=== PATIENT | female | born 2000 | race Two or more races ===

== ENCOUNTER 2020-09-17 17:37 | Emergency (ER) | payer OTHER, SELFPAY ==
[2020-09-17 17:46] VITALS: BP 134/92; PULSE 99; RESP 18; TEMP 37; O2SAT 99; BMI 31.1
[2020-09-17 19:37] VITALS: BP 166/99; PULSE 102; RESP 15; O2SAT 100
[2020-09-17 19:42] VITALS: BP 150/105; PULSE 96; RESP 18; TEMP 36.8; O2SAT 98
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
== END 2020-09-17 20:51 | disposition home or self-care (01) ==
PROVIDERS: Emergency Provider Internal Medicine; PCP Nurse Practitioner Pediatrics
DX: S29.9XXA Unspecified injury of thorax, initial encounter (principal); M54.5 Low back pain; M54.6 Pain in thoracic spine; V43.52XA Car driver injured in collision with other type car in traffic accident, initial encounter; Y93.9 Activity, unspecified; Y92.410 Unspecified street and highway as the place of occurrence of the external cause; Y99.9 Unspecified external cause status
CPT/HCPCS: 99284

== ENCOUNTER 2021-01-01 09:34 | Outpatient (REF) | payer OTHER, SELFPAY ==
[2021-01-01 10:21] LABS: COVID-19 Test Negative (Negative)
== END 2021-01-01 09:35 | disposition home or self-care (01) ==
LOC: HO.LAB 09:34
PROVIDERS: Visit Provider Internal Medicine
DX: Z20.822 Contact with and (suspected) exposure to COVID-19 (principal)
CPT/HCPCS: 36415; 87635; C9803

== ENCOUNTER 2022-11-21 08:51 | Outpatient (AMB) | payer OTHER, SELFPAY ==
--- NOTE | 2022-11-21 08:52 | MHC.PC.OV ---
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 Intake Note: New patient, physical exam Route Driver Required: No Accompanied by: Mother Allergies No Known Allergies Allergy (Verified 11/21/22 09:02) Medication List - Last Reconciled 11/21/22 by Maria Isabel Mazariegos MD ferrous sulfate 325 mg PO TID Tobacco use date assessed: 11/21/22 Dental Screening Dental Screen Date: 11/21/22 Did you have a dental visit in the last 12 months?: Yes Did you have a dental problem in the last 6 months where you did not have access to dental care?: No Was dental information given to patient?: Patient has dentist HPI HPI Comments History of Present Illness Details This is a 21-year-old female that comes for her physical exam. No chest pain or shortness of breath. Last Pap smear was when she was 19 years old as per patient at [facility]. As per patient this was normal. Accompanied by mother. [facility] Medical History (Updated 11/21/22 @ 09:12 by Maria Isabel Mazariegos MD) Vaginal delivery Pre-eclampsia Surgical History No pertinent past surgical history Family History Mother No problems noted. Father No problems noted. Social History Housing: Apartment Alcohol intake: never Patient Tobacco Use Status: Never used Tobacco e-Cigarette/Vaping Use: Never Used Second Hand Smoke Exposure: No service: No Current occupational status: unemployed Cognitive needs: No Hearing needs: No Vision needs: No Questionnaire PHQ-9 Over the last 2 weeks, how often have you been bothered by any of the following problems? 1. Little interest or pleasure in doing things: not at all 2. Feeling down, depressed, or hopeless: not at all 3. Trouble falling or staying asleep, or sleeping too much: not at all 4. Feeling tired or having little energy: not at all 5. Poor appetite or overeating: not at all 6. Feeling bad about yourself - or that you are a failure or have let yourself or your family down: not at all 7. Trouble concentrating on things, such as reading the newspaper or watching television: not at all 8. Moving or speaking so slowly that other people could have noticed. Or the opposite - being so fidgety or restless that you have been moving around a lot more than usual: not at all 9. Thoughts that you would be better off or of hurting yourself in some way: not at all Total score: 0 Depression Screening Interpretation: Negative Depression Screening Done: Yes 37761 - PHQ-9 Billing: Yes Source: Developed by Drs. Tc Jett, Madie Ring, Chidi Blankenship and colleagues, with an educational naif from [employer]. Thrive Questionnaire Date Thrive assessed: 11/21/22 I am a: Patient What is your living situation today?: I have a steady place to live Within the past 12 months, did the food you bought not last and you didn't have the money to get more?: Never true Within the past 12 months, did you worry whether your food would run out before you got money to buy more?: Never true Do you have trouble paying for medicines?: No Do you have trouble getting transportation to medical appointments?: No Do you have trouble paying your heating and electricity bill?: No Do you have trouble taking care of your child, family member or friend?: No Do you have trouble with day-to-day activities such as bathing, preparing meals, shopping, managing finances, etc.?: No Are you currently unemployed and looking for a job?: No Are you interested in more education?: No Please select the resources that you would like help with: None Currently or been in a relationship where the following occur: no concerns reported AUDIT C Alcohol Use Questionnaire (AUDIT-C) 1. How often do you have a drink containing alcohol?: Never Total Score: 0 Score Reviewed/Action Taken: No CRICKET-7 AMB Questionnaire CRICKET-7 Date CRICKET - 7 assessed: 11/21/22 Feeling nervous, anxious, or on edge: 0 = Not at all Not being able to stop or control worryin = Not at all Worrying too much about different things: 0 = Not at all Trouble relaxin = Not at all Being so restless that it is hard to sit still: 0 = Not at all Becoming easily annoyed or irritable: 0 = Not at all Feeling afraid as if something awful might happen: 0 = Not at all Total CRICKET-7 score (0-4 normal; 5-9 mild; 10-14 moderate; 15-21 severe): 0 Source: Developed by Drs. Tc Jett, Madie Ring, Chidi Blankenship and colleagues, with an educational naif from [employer]. CRICKET-7 Assessment Billing CRICKET-7 Assessment Tool: CRICKET-7 Assessment 44453 Review of Systems Const All systems reviewed & are unremarkable except as noted in HPI and below Eyes Reports no additional complaints, Denies change in vision and Denies other visual disturbances Card Denies chest pain at rest, Denies chest pain with activity, Denies edema, Denies irregular heart rhythm, Denies claudication, Denies dyspnea, Denies dyspnea on exertion, Denies orthopnea, Denies paroxysmal nocturnal dyspnea and Denies slow heart rate Resp Denies cough, Denies dyspnea and Denies dyspnea on exertion GI Denies abdominal pain, Denies change in bowel habits, Denies excessive flatus, Denies nausea and Denies vomiting Denies urinary incontinence, Denies urinary hesitancy and Denies urinary urgency Musc Denies abnormal gait, Denies atrophy, Denies deformity and Denies limited range of motion Skin/Breast Denies bleeding lesions, Denies changing lesions and Denies rash Neuro Denies abnormal gait and Denies lack of coordination Physical exam (Primary Care) Vital Signs: Last Vital Signs BP 128/86 11/21/22 08:53 BMI result Body Mass Index 33.5 Tobacco/Smoking Status: Tobacco use Status Tobacco use date assessed 11/21/22 11/21/22 09:00 Patient Tobacco Use Status Never used Tobacco 11/21/22 09:00 e-Cigarette/Vaping Use Never Used 11/21/22 09:00 PHQ-9: PHQ-9 Score PHQ-9: Total score 0 11/21/22 09:00 Depression Screening Interpretation: Negative Thrive Assessment: Date of Thrive Assessment Date Thrive assessed 11/21/22 11/21/22 09:00 Currently or been in a relationship where the following occur: no concerns reported Const Orientation/consciousness: patient oriented x3 HENMT Head: Yes normal to inspection, Yes normocephalic and Yes atraumatic Ears: external ears normal Eyes General: appearance normal, both eyes and all related structures Eyelids: Yes eyelids normal Conjunctivae: conjunctivae normal Neck Neck: Yes normal visual inspection and Yes supple Resp Effort & Inspection: normal respiratory effort Auscultation: clear to auscultation bilaterally Cardio Jugular venous distension: no JVD Rate: regular rate Rhythm: regular rhythm Heart sounds: S1 normal heart sound present and S2 normal heart sound present GI Inspection: Yes normal to inspection Palpation (GI): Soft to palpation and nontender Auscultation: normal bowel sounds Skin General skin exam: no rashes or lesions noted Neuro General: patient oriented x3 and no focal motor deficits Extrem General: Yes full ROM Psych Appearance: grossly normal Office Procedures Flu Questionnaire Does the patient have a severe egg allergy?: No Immunizations flu vacc [id number] 6mos up(PF) 60 mcg(15 mcgx4)/0.5 mL IM syringe Performing Provider: Maria Isabel Mazariegos MD [facility] Documented (not given) by: ENRIQUE Lizarraga on 11/21/22 09:01 Reason Not Given: Patient Refused Assessment and Plan Assessment & Plan (1) Physical exam: Code(s): Z00.00 - Encounter for general adult medical examination without abnormal findings Plan: Repeat in a year. Orders: Orders Influenza [id number] Immunization Today Z23 - Encounter for immunization Complete Blood Count Auto Diff Today D64.9 - Anemia, unspecified IRON PROFILE Today D64.9 - Anemia, unspecified Lipid Panel Today Z00.00 - Encounter for general adult medical examination without abnormal findings Comprehensive [place]. Panel Fast Today Z00.00 - Encounter for general adult medical examination without abnormal findings Coding Level of Care Code New Pt Prev Care 18-39yr([id number] Diagnoses Physical exam Z00.00 Additional Codes CRICKET-7 Assessment Billing - CRICKET-7 Assessment Tool: CRICKET-7 Assessment 20764 ([id number]) Time Spent (min) 32
[2022-11-21 08:53] VITALS: BP 128/86; BMI 33.5
== END 2022-11-21 09:16 | disposition home or self-care (01) ==
PROVIDERS: PCP Internal Medicine; Visit Provider Internal Medicine
DX: Z00.00 Encounter for general adult medical examination without abnormal findings (principal)
CPT/HCPCS: 99385

== ENCOUNTER 2023-05-25 08:44 | Emergency (ER) | payer OTHER, SELFPAY ==
[2023-05-25 09:07] VITALS: BP 130/82; PULSE 99; RESP 20; TEMP 36.9; O2SAT 100; BMI 31.8
[2023-05-25 09:39] LABS: MANUAL DIFF FLAG NO
[2023-05-25 09:40] LABS: Basophils Percent Auto 0.3 % (0-2); Eosinophils Percent Auto 0.3 % (0-4); Hematocrit 35.2 % (37.0-47.0); Hemoglobin 11.4 g/dl (12.0-16.0); Imm Gran Abs Auto 0.02 X10*3/uL (0.00-0.03); Imm Gran Pct Auto 0.2 % (0.0-0.4); Lymphocytes Absolute Auto 1.7 X10*3/uL (1.2-4.9); Lymphocytes Percent Auto 16.3 % (20-40); Mean Corpuscular HGB Conc 32.4 g/dl (31.0-35.0); Mean Corpuscular Hemoglobin 26.8 pg (27.0-33.0); Mean Corpuscular Volume 82.6 fL (80.0-98.0); Mean Platelet Volume 8.9 fL (9.4-12.3); Monocytes Absolute Auto 0.9 X10*3/uL (0.1-1.2); Monocytes Percent Auto 9.2 % (2-11); Neutrophils Absolute Auto 7.5 x10*3/uL (2.0-8.3); Neutrophils Percent Auto 73.7 % (45-73); Platelet Count 333 X10*3/uL (160-400); Red Blood Count 4.26 X10*6/uL (4.20-5.50); Red Cell Distribution Width 15.2 % (11.0-16.0); White Blood Count 10.2 X10*3/uL (4.8-10.8)
[2023-05-25 10:20] LABS: Influenza A PCR NEGATIVE (Negative); Influenza B PCR NEGATIVE (Negative); Resp Syncy Virus RNA Qual PCR NEGATIVE (Negative); SARS COV2 PCR INHOUSE NEGATIVE (Negative)
[2023-05-25 10:44] VITALS: BP 112/78; PULSE 89
[2023-05-25 10:46] VITALS: BP 121/82; PULSE 99
[2023-05-25 10:49] VITALS: BP 122/87; PULSE 97
[2023-05-25 10:58] LABS: Alanine Aminotransferase 8 U/L (0-31); Albumin Level 3.8 g/dL (3.5-5.0); Alkaline Phosphatase 63 U/L (39-117); Anion Gap 12 (12-20); Aspartate Amino Transferase 14 U/L (5-31); Bilirubin Total 0.3 mg/dL (0.0-1.0); Blood Urea Nitrogen 9 mg/dL (9-16); Calcium 9.3 mg/dL (8.4-10.2); Carbon Dioxide 26 mmol/L (22-29); Chloride 104 mmol/L (96-108); Creatinine Clr Calc Pharmacy 118.5; Estimated Glomerular Filt Rate > 60; Glucose Random 87 mg/dL (60-115); Lipase 19 U/L (8-78); Potassium 3.9 mmol/L (3.3-5.1); Sodium 138 mmol/L (135-145); Total Protein 7.4 g/dL (6.5-8.0)
--- NOTE | 2023-05-25 11:00 | ED.NAVMDI ---
HPI - Nausea/Vomiting/Diarrhea General Chief complaint: Nausea/Vomiting/Diarrhea Stated complaint: Vomiting/Dehydrated? Time Seen by Provider: 05/25/23 09:50 Source: patient, family and RN notes reviewed Mode of arrival: ambulatory Limitations: no limitations History of Present Illness HPI Narrative: This is a 22-year-old female, , 8 week , who presents emergency department with complaints of nausea and vomiting. Patient states that yesterday she had approximately 10 episodes of vomiting. She states she ate when these prior to her symptoms and believes that the 1 days did not settle well. She states that she was unable to eat or drink yesterday as she would just vomit this back up. She states that today she was able to eat small bites of food and drink without difficulty and without any return of vomiting. She denies any fevers, chills, chest pain, shortness of breth, abdominal pain, diarrhea, urinary symptoms, vaginal bleeding or discharge. She was seen by her OBGYN, Rupesh, last Friday where she had an ultrasound which was normal. No other complications with this thus far. She states that she had elective D&C's with her other pregnancies. No other complaints or concerns at this time. MD elicited complaint: nausea and vomiting Onset (ago): day(s) Description of vomiting: food contents and watery Associated nausea: Yes Associated abdominal pain: No Location of pain: none Exacerbating factors: eating Relieving factors: none Context: possible food poisoning Associated symptoms: denies other symptoms Related Data Home Medications ?Medication ?Instructions ?Recorded ?Confirmed ferrous sulfate 325 mg (65 mg 325 mg PO TID 11/21/22 11/21/22 iron) tablet Previous Rx's ?Medication ?Instructions ?Recorded Ventolin HFA 90 mcg/actuation 2 puff inhalation Q6H PRN 03/31/23 aerosol inhaler (albuterol sulfate) shortness of breath or wheezing 30 days #8 grams Allergies Allergy/AdvReac Type Severity Reaction Status Date / Time No Known Allergies Allergy Verified 05/25/23 09:13 Review of Systems Review of Systems: Yes all other systems are reviewed and are negative Constitutional: Constitutional: Reports as per HPI Gastrointestinal: Gastrointestinal: Reports nausea PMFSH Past Medical History Medical History (Updated 05/25/23 @ 11:12 by IFEANYI Brown) Vaginal delivery Pre-eclampsia Surgical History No pertinent past surgical history Family History Family History Mother No problems noted. Father No problems noted. Social History Social History Housing: Apartment Alcohol intake: never Patient Tobacco Use Status: Never used Tobacco e-Cigarette/Vaping Use: Never Used Second Hand Smoke Exposure: No Advance Directives: No Advance Directives Information Provided: No service: No Current occupational status: unemployed Cognitive needs: No Hearing needs: No Vision needs: No Physical Exam Vital Signs: Vital Signs: Last Vital Signs Temp 98.5 F 05/25/23 09:07 Pulse 97 05/25/23 10:49 Resp 20 05/25/23 09:07 BP 122/87 05/25/23 10:49 Pulse Ox 100 05/25/23 09:07 O2 Del Method Room Air 05/25/23 09:07 BMI result Body Mass Index 31.8 Const: General: cooperative, comfortable and no acute distress Orientation/consciousness: patient oriented x3 Limitations: no limitations HEENT: Head: Yes normal to inspection, Yes normocephalic and Yes atraumatic Ears: hearing grossly normal bilaterally General nose exam: Normal external nose present Face and sinus: Yes normal facial exam Mouth: Normal oral and palatal mucosa present, oropharynx normal and moist mucous membranes Throat: Yes posterior oropharynx normal Eyes: General: appearance normal, both eyes and all related structures Eyelids: Yes eyelids normal Conjunctivae: conjunctivae normal Sclerae: sclerae normal Pupils: Equal, round and reactive pupils present EOM: EOMs intact bilaterally Neck: Neck: Yes normal visual inspection, Yes full ROM and Yes no lymphadenopathy Lymphatic: no lymphadenopathy noted Chest: Chest palpation & inspection: normal inspection of the chest Resp: Effort & Inspection: normal respiratory effort and able to speak in complete sentences Auscultation: clear to auscultation bilaterally, no crackles, no rales, no rhonchi and no wheezes Cardio: Rate: regular rate Rhythm: regular rhythm Heart sounds: S1 normal heart sound present and S2 normal heart sound present GI: Other: Abdomen is soft, nontender, nondistended Inspection: Yes normal to inspection Skin: General skin exam: no rashes or lesions noted Trauma: no lacerations or abrasions Wounds: no wounds Neuro: General: patient oriented x3 and moves all extremities Cranial nerves: Yes Equal, round and reactive pupils present Extrem: General: Yes normal to inspection Right upper extremity: normal to inspection Left upper extremity: normal to inspection Right lower extremity: normal to inspection Left lower extremity: normal to inspection Course Reevaluation(s) Reevaluation #1: Orthostatic vitals performed, patient is not orthostatic at this time. Chemistry returns, electrolytes within normal limits, creatinine around her baseline. Hematology revealing slight normocytic anemia with a hemoglobin and hematocrit at 11.4/35.2. Discussed findings with patient and family at bedside. Discussed return precautions. She is eating Doritos without difficulty. Given return precautions. Patient stable for discharge. Time: 11:07 Medical Decision Making Medical Decision Making [facility] Narrative: This is a 22-year-old female, 8 week , presenting to the emergency department with complaints of nausea and vomiting. Patient states that yesterday she would approximately 10 episodes of vomiting and was unable to eat or drink anything due to intractable nausea and vomiting. She states that today she is able to eat and drink without difficulty. She endorses mild nausea which is normal for her and her . She is nontoxic appearing, vital signs within normal limits. Abdomen is soft and nontender. She has had no vaginal bleeding or discharge, no abdominal pain. She had an ultrasound performed by her OBGYN last week which was normal. Plan: Labs, orthostatic vitals Differential Diagnosis Differential Diagnoses: The differential diagnosis associated with the presentation includes Dehydration, electrolyte derangement, hyperemesis gravidarum, , acute abdomen-unlikely, cholecystitis-unlikely Admission/Observation Consideration of admission/observation: Escalation of care including admission/observation considered Escalation of care including admission/observation considered however given workup today not warranted at this time. Lab Data [facility] Lab Attestation statement: I reviewed the patient's lab results. 05/25/23 09:34 05/25/23 09:34 Labs: Lab Results 05/25/23 05/25/23 Range/Units 09:33 09:34 WBC 10.2 (4.8-10.8) X10*3/uL RBC 4.26 (4.20-5.50) X10*6/uL Hgb 11.4 L (12.0-16.0) g/dl Hct 35.2 L (37.0-47.0) % MCV 82.6 (80.0-98.0) fL MCH 26.8 L (27.0-33.0) pg MCHC 32.4 (31.0-35.0) g/dl RDW 15.2 (11.0-16.0) % Plt Count 333 (160-400) X10*3/uL MPV 8.9 L (9.4-12.3) fL Immature Gran % (Auto) 0.2 (0.0-0.4) % Neut % (Auto) 73.7 H (45-73) % Lymph % (Auto) 16.3 L (20-40) % [place] % (Auto) 9.2 (2-11) % Eos % (Auto) 0.3 (0-4) % Baso % (Auto) 0.3 (0-2) % Lymph # (Auto) 1.7 (1.2-4.9) X10*3/uL [place] # (Auto) 0.9 (0.1-1.2) X10*3/uL Eos # (Auto) 0.0 (0.0-0.4) X10*3/uL Baso # (Auto) 0.0 (0.0-0.2) X10*3/uL Abs Immat Gran (auto) 0.02 (0.00-0.03) X10*3/uL Absolute Neuts (auto) 7.5 (2.0-8.3) x10*3/uL Absolute Nucleated RBC 0.000 (0.0-0.012) X10*3/uL Nucleated RBC % (auto) 0.0 (0.0-0.2) /100WBC Sodium 138 (135-145) mmol/L Potassium 3.9 (3.3-5.1) mmol/L Chloride 104 (96-108) mmol/L Carbon Dioxide 26 (22-29) mmol/L Anion Gap 12 (12-20) BUN 9 (9-16) mg/dL Creatinine 0.78 (0.5-1.4) mg/dL Estim Creat Clear Calc 118.5 Estimated GFR > 60 Random Glucose 87 (60-115) mg/dL Calcium 9.3 (8.4-10.2) mg/dL Total Bilirubin 0.3 (0.0-1.0) mg/dL AST 14 (5-31) U/L ALT 8 (0-31) U/L Alkaline Phosphatase 63 (39-117) U/L Total Protein 7.4 (6.5-8.0) g/dL Albumin 3.8 (3.5-5.0) g/dL Lipase 19 (8-78) U/L Influenza Type A (PCR) NEGATIVE (Negative) Influenza Type B (PCR) NEGATIVE (Negative) RSV RNA Qual (PCR) NEGATIVE (Negative) SARS-CoV-2 RNA (RT-PCR) NEGATIVE (Negative) Radiology Impression Discussion of test interpretation with radiology: I have reviewed the radiologist's reading. External Record Review External record reviewed: Inpatient record, Office record, Outpatient record, Prior outpatient labs, Prior outpatient radiology, Primary care record and Outside ED record Discharge Plan Discharge Clinical Impression: Nausea & vomiting Patient Disposition: Home, Self-Care Instructions: Acute Nausea and Vomiting (ED) Additional Instructions: Your seen in the emergency department due to nausea and vomiting. This may be due to a virus, something weight, or your . Your workup today was reassuring. Please drink plenty of fluids get plenty of rest. Small bland meals for the next several days will help with nausea and vomiting. Follow-up with your OBGYN regarding this visit. If any new or worsening symptoms occur including but not limited to inability to tolerate food/drink, abdominal pain, vaginal bleeding, vaginal discharge, abdominal pain, please return for re-evaluation. Prescriptions: No Action albuterol sulfate [Ventolin HFA] 90 mcg/actuation HFA aerosol inhaler 2 puff inhalation Q6H PRN (Reason: shortness of breath or wheezing) 30 Days Qty: 8 2RF ferrous sulfate 325 mg (65 mg iron) tablet 325 mg PO TID Print Language: Micronesian
[2023-05-25 11:10] LABS: Appearance Urine Clear; Color Urine Yellow; Glucose Urine UA Negative (Negative); Leukocyte Esterase Urine Trace (Negative); Nitrite Urine Negative (Negative); Specific Gravity - Urine 1.025 (1.005-1.025); UMIC TRIGGER UACC YES; Urine Blood Negative (Negative); Urine Ketones Trace mg/dL (Negative); Urine Protein Trace mg/dL (Neg-Trace)
[2023-05-25 11:11] LABS: Urine Pregnancy POSITIVE (NEGATIVE)
[2023-05-25 11:12] LABS: UPreg QC Valid YES
[2023-05-25 11:15] VITALS: BP 122/87; PULSE 97; RESP 16; TEMP 36.9
[2023-05-25 11:15] LABS: Bacteria Urine Trace (None Seen); RBC Urine 0-2 /HPF (0-2); WBC Urine 0-5 /HPF (0-5)
== END 2023-05-25 11:16 | disposition home or self-care (01) ==
PROVIDERS: Physician Assistant Medical; Emergency Provider Student in an Organized Health Care Education/Training Program; PCP Internal Medicine
DX: O21.0 Mild hyperemesis gravidarum (principal); Z3A.08 8 weeks gestation of pregnancy; Z11.52 Encounter for screening for COVID-19; Z20.822 Contact with and (suspected) exposure to COVID-19
CPT/HCPCS: 0241U; 36415; 80053; 81001; 81025; 83690; 85025; 99283

== ENCOUNTER 2023-11-26 09:11 | Outpatient (AMB) | payer OTHER, SELFPAY ==
--- NOTE | 2023-11-26 09:13 | MHC.PC.OV ---
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 Required: No Accompanied by: Self / Same As Patient Allergies No Known Allergies Allergy (Verified 11/26/23 09:31) Medication List - Last Reconciled 11/26/23 by Maria Isabel Mazariegos MD ferrous sulfate 325 mg PO TID Ventolin HFA 90 mcg/actuation (albuterol sulfate) 2 puffs inhalation Q6H PRN 30 days NS Tobacco use date assessed: 11/26/23 Dental Screening Dental Screen Date: 11/26/23 Did you have a dental visit in the last 12 months?: Yes Did you have a dental problem in the last 6 months where you did not have access to dental care?: No Was dental information given to patient?: Patient has dentist HPI HPI Comments History of Present Illness Details This is a 22-year-old female that comes for her physical exam. As per patient she had a Pap smear this year that was normal. She is 35 weeks and that explain her 20 lb increase in weight since last time. No chest pain or shortness on breath. [facility]LY [facility] Medical History Vaginal delivery Pre-eclampsia Surgical History No pertinent past surgical history Family History Mother No problems noted. Father No problems noted. Social History Housing: Apartment Alcohol intake: never Patient Tobacco Use Status: Never used Tobacco e-Cigarette/Vaping Use: Never Used Second Hand Smoke Exposure: No service: No Current occupational status: unemployed Cognitive needs: No Hearing needs: No Vision needs: No Questionnaire PHQ-9 Over the last 2 weeks, how often have you been bothered by any of the following problems? 1. Little interest or pleasure in doing things: not at all 2. Feeling down, depressed, or hopeless: not at all 3. Trouble falling or staying asleep, or sleeping too much: not at all 4. Feeling tired or having little energy: several days 5. Poor appetite or overeating: not at all 6. Feeling bad about yourself - or that you are a failure or have let yourself or your family down: not at all 7. Trouble concentrating on things, such as reading the newspaper or watching television: not at all 8. Moving or speaking so slowly that other people could have noticed. Or the opposite - being so fidgety or restless that you have been moving around a lot more than usual: not at all 9. Thoughts that you would be better off or of hurting yourself in some way: not at all Total score: 1 Depression Screening Interpretation: Negative Depression Screening Done: Yes 65126 - PHQ-9 Billing: Yes Source: Developed by Drs. Tc Jett, Madie Ring, Chidi Blankenship and colleagues, with an educational naif from [employer]. Thrive Questionnaire Date Thrive assessed: 11/26/23 I am a: Patient What is your living situation today?: I have a steady place to live Within the past 12 months, did the food you bought not last and you didn't have the money to get more?: Never true Within the past 12 months, did you worry whether your food would run out before you got money to buy more?: Never true Do you have trouble paying for medicines?: No Do you have trouble getting transportation to medical appointments?: No Do you have trouble paying your heating and electricity bill?: No Do you have trouble taking care of your child, family member or friend?: No Do you have trouble with day-to-day activities such as bathing, preparing meals, shopping, managing finances, etc.?: No Are you currently unemployed and looking for a job?: No Are you interested in more education?: No Please select the resources that you would like help with: None Currently or been in a relationship where the following occur: I choose not to answer THRIVE Score: 0 AUDIT C Alcohol Use Questionnaire (AUDIT-C) 1. How often do you have a drink containing alcohol?: Never Total Score: 0 Score Reviewed/Action Taken: No CRICKET-7 AMB Questionnaire CRICKET-7 Date CRICKET - 7 assessed: 11/26/23 Feeling nervous, anxious, or on edge: 0 = Not at all Not being able to stop or control worryin = Not at all Worrying too much about different things: 0 = Not at all Trouble relaxin = Not at all Being so restless that it is hard to sit still: 0 = Not at all Becoming easily annoyed or irritable: 0 = Not at all Feeling afraid as if something awful might happen: 0 = Not at all Total CRICKET-7 score (0-4 normal; 5-9 mild; 10-14 moderate; 15-21 severe): 0 Source: Developed by Drs. Tc Jett, Madie Ring, Chidi Blankenship and colleagues, with an educational naif from [employer]. CRICKET-7 Assessment Billing CRICKET-7 Assessment Tool: CRICKET-7 Assessment 40789 Review of Systems Const All systems reviewed & are unremarkable except as noted in HPI and below Card Denies chest pain at rest, Denies chest pain with activity, Denies edema, Denies irregular heart rhythm, Denies claudication, Denies dyspnea, Denies dyspnea on exertion, Denies orthopnea, Denies paroxysmal nocturnal dyspnea and Denies slow heart rate Resp Denies cough, Denies dyspnea and Denies dyspnea on exertion GI Denies abdominal pain, Denies change in bowel habits, Denies excessive flatus, Denies nausea and Denies vomiting Physical exam (Primary Care) Vital Signs: Last Vital Signs BP 112/82 11/26/23 09:14 BMI result Body Mass Index 35.2 BMI Assessment/Plan discussion: High BMI High, discussed plan: lifestyle, weight reduction, dietary and physical activity Tobacco/Smoking Status: Tobacco use Status Tobacco use date assessed 11/26/23 11/26/23 09:20 Patient Tobacco Use Status Never used Tobacco 11/26/23 09:13 e-Cigarette/Vaping Use Never Used 11/26/23 09:13 PHQ-9: PHQ-9 Score PHQ-9: Total score 1 11/26/23 09:20 Depression Screening Interpretation: Negative Thrive Assessment: Date of Thrive Assessment Date Thrive assessed 11/26/23 11/26/23 09:20 Currently or been in a relationship where the following occur: I choose not to answer HENWI Head: Yes normal to inspection, Yes normocephalic and Yes atraumatic Ears: external ears normal Eyes General: appearance normal, both eyes and all related structures Eyelids: Yes eyelids normal Conjunctivae: conjunctivae normal Neck Neck: Yes normal visual inspection and Yes supple Resp Effort & Inspection: normal respiratory effort Auscultation: clear to auscultation bilaterally Cardio Jugular venous distension: no JVD Rate: regular rate Rhythm: regular rhythm Heart sounds: S1 normal heart sound present and S2 normal heart sound present GI Inspection: Yes normal to inspection Palpation (GI): Soft to palpation and nontender Auscultation: normal bowel sounds Skin General skin exam: no rashes or lesions noted Neuro General: no focal motor deficits Extrem General: Yes full ROM Psych Appearance: grossly normal Office Procedures Flu Questionnaire Does the patient have a severe egg allergy?: No Immunizations Fluarix Triv [id number] (PF) 45 mcg (15 mcg x 3)/0.5 mL IM syringe Performing Provider: Maria Isabel Mazariegos MD [facility] Documented (not given) by: ENRIQUE Lizarraga on 11/26/23 09:20 Reason Not Given: Patient Refused Coding Level of Care Code Est Pt Prev Care 18-39y(33489) Diagnoses Physical exam Z00.00 Additional Codes CRICKET-7 Assessment Billing - CRICKET-7 Assessment Tool: CRICKET-7 Assessment 77036 ([id number]) Time Spent (min) 30 Assessment & Plan Assessment & Plan (1) Physical exam: Code(s): Z00.00 - Encounter for general adult medical examination without abnormal findings Category: Medical Plan: Repeat in a year. Orders: Orders Influenza [id number] Immunization Today Z23 - Encounter for immunization Medications: Refilled Ventolin HFA 90 mcg/actuation (albuterol sulfate) 2 puffs inhalation Q6H 30 days PRN 8 grams 2RF shortness of breath or wheezing NS J45.909 - Unspecified asthma, uncomplicated
[2023-11-26 09:14] VITALS: BP 112/82; BMI 35.2
== END 2023-11-26 09:40 | disposition home or self-care (01) ==
PROVIDERS: PCP Internal Medicine; Visit Provider Internal Medicine
DX: Z23 Encounter for immunization (principal); Z00.00 Encounter for general adult medical examination without abnormal findings

== ENCOUNTER → 2023-11-26 09:11 | Outpatient (BNVA) | payer OTHER, SELFPAY | PROVIDERS: PCP Internal Medicine; Visit Provider Internal Medicine | DX: Z00.01 Encounter for general adult medical examination with abnormal findings (principal); Z23 Encounter for immunization; J45.909 Unspecified asthma, uncomplicated | CPT/HCPCS: 90471; 96127; 99395 ==

== ENCOUNTER 2024-07-26 11:02 | Outpatient (AMB) | payer OTHER, SELFPAY ==
--- NOTE | 2024-07-26 11:06 | MHC.OFFWIV ---
Intake Vital Signs 07/26/24 11:13 Height 5 ft 4 in Weight 201 lb 4 oz BMI 34.5 BP 118/88 Blood Pressure Location Rt brachial Position Sitting Pulse 74 Pulse Source Pulse Oximeter Temp 98.6 F Temp Source Oral Pulse Oximetry (%) 97 Oxygen Delivery Method Room Air Intake Visit Reasons: EP pain on neck area Intake Note: Pt has neck pain on right, everytime she goes to move.Pain started last week randomly. Pt has gotten period 2x month since may. Patient Tobacco Use Status: Never used Tobacco Allergies No Known Allergies Allergy (Verified 07/26/24 11:14) HPI HPI Comments History of Present Illness Details History of Present Illness - The patient is a 23-year-old female presenting with neck pain. - Neck pain began one to two weeks ago, with tenderness on the right side of the neck. - The pain was exacerbated after an observed night of crooked sleeping posture. - She uses Tylenol for pain relief with minimal effect, and the pain persists despite this. - She denies neurological symptoms such as arm or hand tingling or numbness. - The patient notes the pain occurs primarily on movement of the neck, specifically with forward and backward bending. - She denies trauma to the neck, TRIPP, shoulder pain, back pain, arm pain, numbness or tingling. Physical Exam General: Cooperative, healthy appearing, comfortable, no acute distress and well developed Orientation: Patient oriented x3 Neck: Normal visual inspection. full ROM with discomfort. No midline spinous tenderness noted. No step offs noted. TTP of the right SCM. Respiratory: Normal respiratory effort and able to speak in complete sentences. Clear to auscultation bilaterally Cardiovascular: Regular rate and rhythm. Normal S1 and S2 Skin: No rashes or lesions noted Neuro: Patient oriented x3, no neurological deficits noted. Extremities: Normal to inspection. FROM of the UE bilaterally. Patient was informed and verbally consented to the use of an ambient scribe for clinic note documentation during this visit. [facility]LY [facility] Medical History Vaginal delivery Pre-eclampsia Surgical History No pertinent past surgical history Family History Mother No problems noted. Father No problems noted. Social History Housing: Apartment Alcohol intake: never Patient Tobacco Use Status: Never used Tobacco e-Cigarette/Vaping Use: Never Used Second Hand Smoke Exposure: No service: No Current occupational status: unemployed Cognitive needs: No Hearing needs: No Vision needs: No Review of Systems Const All systems reviewed & are unremarkable except as noted in HPI and below Physical Exam Vital Signs: Last Vital Signs Temp 98.6 F 07/26/24 11:13 Pulse 74 07/26/24 11:13 BP 118/88 07/26/24 11:13 Pulse Ox 97 07/26/24 11:13 Oxygen Delivery Method Room Air 07/26/24 11:13 BMI result Body Mass Index 34.5 Assessment & Plan Assessment & Plan (1) Neck pain: Code(s): M54.2 - Cervicalgia Plan Most likely strain vs torticollis Plan - Prescribed a muscle relaxant for up to three times daily use based on need, with caution due to potential drowsiness. - Suggested a heating pad or ice for symptomatic relief based on preference. - Provided reassurance that symptoms are muscle-related rather than bone or neurological issues, with preventive advice to modify sleeping posture. - Recommended follow-up if persistent symptoms occur after treatment for primary care evaluation. Medications: New naproxen 500 mg PO Q12H PRN 20 tabs 0RF pain cyclobenzaprine 5 mg PO tid 7 days PRN 21 tabs 0RF Muscle Spasm Coding Level of Care Code Est Pt Level 3 (26814) Diagnoses Neck pain M54.2
[2024-07-26 11:13] VITALS: BP 118/88; PULSE 74; TEMP 37; O2SAT 97; BMI 34.5
--- OUTSIDE RECORDS SUMMARY | 2024-07-26 12:36 | XMS_ITS | Clinical Summary ---
Author Organization [employer] Address [address] [place] [address] Care Team Providers Care Vending Machine Coin Collector Name Role Phone Unavailable Primary Care Provider Unavailabl e Social History Tobacco Use Types Packs/Day Years Used Date Smoking Tobacco: Never Assessed Comments Unknown Sex and Gender Information Value Date Recorded Sex Assigned at Female 11/14/2022 11:28 AM EDT Legal Sex Female 11:24 AM EDT Gender Identity Female 11/14/2022 11:28 AM EDT Sexual Orientation Straight 11/14/2022 11 :28 AM EDT Plan of Treatment Health Maintenance Due Date Last Done Comments Chlamydia and Gonorrhea Screening 2000 Depression Screening 2000 HIV Screening 2000 Lipid Panel 2000 SDOH Screening 2000 Disability Screening 01/01/2001 Alcohol/Substance Use Screening 2012 Tobacco Screening 2012 Family Planning (PISQ) 01/01/2016 HPV Vaccines (1 - 3-dose series) 01/01/2016 Meningococcal B Vaccine (1 of 2 - Standard) 2016 Hepatitis B Vaccines (2 of 3 - 3-dose series) 12/25/2018 11/27/2018 Hepatitis C Screening 2018 Pneumococcal Vaccine: Pediatrics (0 to 5 Years) and At-Risk Patients (6 to 49) Years) (1 of 2 - PCV) 01/01/2020 Pap Smear 2021 COVID-19 Vaccine (1 - season) 2023 Influenza Vaccine (Season Ended) 2024 02/01/2020, 02/01/2020, 11/24/2018, Additional history exists DTaP/Tdap/Td Vaccines (3 - Td or Tdap) 10/14/2033 10/15/2023, 05/24/2020 Zoster Vaccines (1 of 2) 2050 RSV Patients and Patients Aged 60 years or older (1 - 1-dose 75+ series) 01/01/2076 Meningococcal Vaccine Completed 01/27/2017, 017 HIB Vaccines Aged Out No longer eligi ble based on patient's age to complete this topic Hepatitis A Vaccines Aged Out No long er eligible based on patient's age to complete this topic IPV Vaccines Aged Out No longer eligi ble based on patient's age to complete this topic RSV under 20 months Aged Out No longe r eligible based on patient's age to complete this topic Rotavirus Vaccines Aged Out No longer eligible based on patient's age to complete this topic Insurance [facility]
== END 2024-07-26 12:31 | disposition home or self-care (01) ==
PROVIDERS: PCP Internal Medicine; Visit Provider Physician Assistant Medical
DX: M54.2 Cervicalgia (principal)

== ENCOUNTER → 2024-07-26 11:02 | Outpatient (BNVA) | payer OTHER, SELFPAY | PROVIDERS: PCP Internal Medicine; Visit Provider Physician Assistant Medical | DX: M54.2 Cervicalgia (principal) | CPT/HCPCS: 99212 ==

== ENCOUNTER 2024-11-16 10:42 | Outpatient (AMB) | payer OTHER, SELFPAY ==
[2024-11-16 10:52] VITALS: BP 122/88; PULSE 87; TEMP 36.1; O2SAT 96; BMI 35.7
--- NOTE | 2024-11-16 10:52 | A.OFFPC_ITS ---
Vital Signs 11/16/24 10:52 Height 5 ft 4 in Weight 208 lb 2 oz BMI 35.7 BP 122/88 Blood Pressure Location Lt brachial Position Sitting Pulse 87 Pulse Source Pulse Oximeter Temp 97.0 F Temp Source Temporal Artery Scan Pulse Oximetry (%) 96 Oxygen Delivery Method Room Air Intake Visit Reasons: pain in breast Accompanied by: Mother Allergies No Known Allergies Allergy (Verified 11/16/24 10:57) Medication List - Last Reconciled 11/16/24 by Nirali Ortiz MD Ventolin HFA 90 mcg/actuation (albuterol sulfate) 2 puffs inhalation Q6H PRN 30 days NS Tobacco use date assessed: 11/16/24 Dental Screening Dental Screen Date: 11/16/24 Did you have a dental visit in the last 12 months?: Yes Did you have a dental problem in the last 6 months where you did not have access to dental care?: No Was dental information given to patient?: Patient has dentist HPI HPI Comments History of Present Illness Details The patient is a 23-year-old female presenting with breast discomfort. The sensation is described as pressure, particularly when lying on the left side, and has been present for less than two weeks without significant change. The discomfort is more noticeable at night and is not associated with any lumps, nipple discharge, or skin changes. The patient has a history of anxiety, which she suspects may contribute to her symptoms. She has recently stopped her [id number] daughter and has no family history of breast cancer. The patient is worried about having breast cancer. [facility] Medical History Vaginal delivery Pre-eclampsia Surgical History No pertinent past surgical history Family History Mother No problems noted. Father No problems noted. Social History Housing: Apartment Alcohol intake: never Patient Tobacco Use Status: Never used Tobacco e-Cigarette/Vaping Use: Never Used Second Hand Smoke Exposure: No service: No Current occupational status: unemployed Cognitive needs: No Hearing needs: No Vision needs: No Questionnaire PHQ-9 Over the last 2 weeks, how often have you been bothered by any of the following problems? 1. Little interest or pleasure in doing things: not at all 2. Feeling down, depressed, or hopeless: not at all 3. Trouble falling or staying asleep, or sleeping too much: not at all 4. Feeling tired or having little energy: not at all 5. Poor appetite or overeating: not at all 6. Feeling bad about yourself - or that you are a failure or have let yourself or your family down: not at all 7. Trouble concentrating on things, such as reading the newspaper or watching television: not at all 8. Moving or speaking so slowly that other people could have noticed. Or the opposite - being so fidgety or restless that you have been moving around a lot more than usual: not at all 9. Thoughts that you would be better off or of hurting yourself in some way: not at all Total score: 0 Source: Developed by Drs. Tc Jett, Madie Ring, Chidi Blankenship and colleagues, with an educational naif from [employer]. Thrive Questionnaire Date Thrive assessed: 11/16/24 I am a: Patient What is your living situation today?: I have a steady place to live Within the past 12 months, did the food you bought not last and you didn't have the money to get more?: Never true Within the past 12 months, did you worry whether your food would run out before you got money to buy more?: Never true Do you have trouble paying for medicines?: No Do you have trouble getting transportation to medical appointments?: No Do you have trouble paying your heating and electricity bill?: No Do you have trouble taking care of your child, family member or friend?: No Do you have trouble with day-to-day activities such as bathing, preparing meals, shopping, managing finances, etc.?: No Are you currently unemployed and looking for a job?: No Are you interested in more education?: No Please select the resources that you would like help with: None Currently or been in a relationship where the following occur: No concerns reported THRIVE Score: 0 AUDIT C Alcohol Use Questionnaire (AUDIT-C) 1. How often do you have a drink containing alcohol?: Never 3. How often do you have six or more drinks on one occasion?: Never Total Score: 0 CRICKET-7 AMB Questionnaire CRICKET-7 Date CRICKET - 7 assessed: 11/16/24 Feeling nervous, anxious, or on edge: 0 = Not at all Not being able to stop or control worryin = Not at all Worrying too much about different things: 0 = Not at all Trouble relaxin = Not at all Being so restless that it is hard to sit still: 0 = Not at all Becoming easily annoyed or irritable: 0 = Not at all Feeling afraid as if something awful might happen: 0 = Not at all Total CRICKET-7 score (0-4 normal; 5-9 mild; 10-14 moderate; 15-21 severe): 0 Source: Developed by Drs. Tc Jett, Madie Ring, Chidi Blankenship and colleagues, with an educational naif from [employer]. Review of Systems Const Details: Positives besides what was mentioned in HPI are in BOLD Constitutional: No Weight Change, No Fever, No Chills, No Night Sweats, No Fatigue, No Malaise ENT/Mouth: No Hearing Changes, No Ear Pain, No Nasal Congestion, No Sinus Pain, No Hoarseness, No sore throat, No Rhinorrhea, No Swallowing Difficulty Eyes: No Eye Pain, No Swelling, No Redness, No Foreign Body, No Discharge, No Vision Changes Cardiovascular: No Chest Pain, No SOB, No PND, No Dyspnea on Exertion, No Orthopnea, No Claudication, No Edema, No Palpitations Respiratory: No Cough, No Sputum, No Wheezing, No Smoke Exposure, No Dyspnea Gastrointestinal: No Nausea, No Vomiting, No Diarrhea, No Constipation, No Pain, No Heartburn, No Anorexia, No Dysphagia, No Hematochezia, No Melena, No Flatulence, No Jaundice Genitourinary: No Dysmenorrhea, No DUB, No Dyspareunia, No Dysuria, No Urinary Frequency, No Hematuria, No Urinary Incontinence, No Urgency, No Flank Pain, No Urinary Flow Changes, No Hesitancy Musculoskeletal: No Arthralgias, No Myalgias, No Joint Swelling, No Joint Stiffness, No Back Pain, No Neck Pain, No Injury History Skin: No Skin Lesions, No Pruritis, No Hair Changes, No Breast/Skin Changes, No Nipple Discharge Neuro: No Weakness, No Numbness, No Paresthesias, No Loss of Consciousness, No Syncope, No Dizziness, No Headache, No Coordination Changes, No Recent Falls Psych: No Anxiety/Panic, No Depression, No Insomnia, No Personality Changes, No Delusions, No Rumination, No SI/HI/AH/VH, No Social Issues, No Memory Changes, No Violence/Abuse Hx., No Eating Concerns Heme/Lymph: No Bruising, No Bleeding, No Transfusions History, No Lymphadenopathy Endocrine: No Polyuria, No Polydipsia, No Temperature Intolerance Physical exam (Primary Care) Vital Signs: Last Vital Signs Temp 97.0 F 11/16/24 10:52 Pulse 87 11/16/24 10:52 BP 122/88 11/16/24 10:52 Pulse Ox 96 11/16/24 10:52 Oxygen Delivery Method Room Air 11/16/24 10:52 BMI result Body Mass Index 35.7 Tobacco/Smoking Status: Tobacco use Status Tobacco use date assessed 11/16/24 11/16/24 10:58 Patient Tobacco Use Status Never used Tobacco 11/16/24 10:58 e-Cigarette/Vaping Use Never Used 11/16/24 10:58 PHQ-9: PHQ-9 Score PHQ-9: Total score 0 11/16/24 10:58 Thrive Assessment: Date of Thrive Assessment Date Thrive assessed 11/16/24 11/16/24 10:58 Currently or been in a relationship where the following occur: No concerns reported Const Other: Pertinent findings are in BOLD GENERAL APPEARANCE NAD, activity normal for age, well developed/ well nourished, no cyanosis, pallor, or diaphoresis. EYES lids/conjunctiva normal. EARS/NOSE/THROAT Mucous membranes moist, nares normal, lips/teeth normal uvula midline without oral pharyngeal erythema, exudate or swelling TMs normal bilaterally. No lymphangitis/lymphedema. HEAD/NECK normocephalic atraumatic, no facial trauma, neck is supple. RESPIRATORY respiratory effort normal, speaks in full sentences, no tripod position, no accessory muscle use. Lungs clear to auscultation without rhonchi, wheezes, rales CARDIAC Regular rate and rhythm, no edema. ABDOMINAL Soft, ND/NT. No evidence of fluid wave. No pulsatile masses on exam, rebound tenderness, Amato sign or pain over Mcburney's point. MUSCLES/EXTREMITIES No abnormal range of motion, no swelling. SKIN Warm, pink and dry. No rashes, dermatoses, petechiae or lesions. NEUROLOGICAL Speech is clear and appropriate. Normal level of consciousness. Gait and coordination are normal. 5/5 strength in all extremities. PSYCH Normal mood and affect. Judgement/competence is appropriate Breast exam completed with saw tailer ([place] and patient's mother): no lumps, no nipple changes/discharge. Coding Level of Care Code Est Pt Level 3 (74918) Diagnoses Breast tenderness N64.4 Time Spent (min) 20 Assessment & Plan Assessment & Plan (1) Breast tenderness: Code(s): N64.4 - Mastodynia Category: Medical Plan: - Monitor symptoms and return if they persist or worsen. - Reassurance provided regarding low likelihood of breast cancer, especially given recent and lack of family history. Plan I discussed with the patient the low likelihood of breast cancer given her recent history and absence of family history. I advised monitoring the symptoms and returning if they persist or worsen. We also discussed how anxiety might contribute to her physical symptoms.
--- OUTSIDE RECORDS SUMMARY | 2024-11-16 12:01 | XMS_ITS | Clinical Summary ---
Author Organization [employer] Address [address] [place] [address] Care Team Providers Care Assistant Refinery Operator Name Role Phone Unavailable Primary Care Provider [...] Years) and At-Risk Patients (6 to 49) Years (1 of 2 - PCV) 01/01/2020 Pap Smear 2021 COVID-19 Vaccine (1 - season) 2024 Influenza Vaccine (#1) 2024 , 02/01/2020, 11/24/2018, Additional history exists DTaP/Tdap/Td Vaccines [...] patient's age to complete this topic Insurance [facility]
== END 2024-11-16 11:45 | disposition home or self-care (01) ==
LOC: HO.HMCH 10:43
PROVIDERS: PCP Internal Medicine; Visit Provider Internal Medicine
DX: N64.4 Mastodynia (principal)

== ENCOUNTER → 2024-11-16 10:42 | Outpatient (BNVA) | payer OTHER, SELFPAY | PROVIDERS: PCP Internal Medicine; Visit Provider Internal Medicine | DX: N64.4 Mastodynia (principal) | CPT/HCPCS: 99212 ==

== ENCOUNTER 2024-11-29 10:03 | Outpatient (REF) | payer OTHER, SELFPAY ==
[2024-11-29 11:09] LABS: MANUAL DIFF FLAG NO
[2024-11-29 11:56] LABS: Hematocrit 40.0 % (37.0-47.0); Hemoglobin 12.6 g/dl (12.0-16.0); Imm Gran Abs Auto 0.02 X10*3/uL (0.00-0.03); Imm Gran Pct Auto 0.3 % (0.0-0.4); Lymphocytes Absolute Auto 2.0 X10*3/uL (1.2-4.9); Mean Corpuscular HGB Conc 31.5 g/dl (31.0-35.0); Mean Corpuscular Hemoglobin 28.1 pg (27.0-33.0); Mean Corpuscular Volume 89.1 fL (80.0-98.0); NRBC Abs Auto 0.000 X10*3/uL (0.0-0.012); NRBC Pct Auto 0.0 /100WBC (0.0-0.2); Platelet Count 382 X10*3/uL (160-400); Red Blood Count 4.49 X10*6/uL (4.20-5.50); White Blood Count 7.0 X10*3/uL (4.8-10.8)
[2024-11-29 12:20] LABS: Alanine Aminotransferase 20 U/L (0-31); Albumin Level 4.5 g/dL (3.5-5.0); Alkaline Phosphatase 75 U/L (39-117); Anion Gap 11 (12-20); Aspartate Amino Transferase 30 U/L (5-31); Blood Urea Nitrogen 13 mg/dL (9-16); Calcium 9.2 mg/dL (8.4-10.2); Carbon Dioxide 29 mmol/L (22-29); Chloride 107 mmol/L (96-108); Cholesterol 152 mg/dL (<200); Estimated Glomerular Filt Rate > 60; HDL Cholesterol 65 mg/dL (>40); Iron 59 mcg/dL (30-160); Percent Iron Saturation 19 % (15-50); Potassium 4.3 mmol/L (3.3-5.1); Sodium 143 mmol/L (135-145); Total Iron Binding Capacity 303 mcg/dL (228-428); Total Protein 7.5 g/dL (6.5-8.0); Triglycerides 58 mg/dL (<150); Unsaturated Iron Binding 244 ug/dL
[2024-11-29 12:35] LABS: Thyroid Stimulating Hormone 1.97 uIU/mL (0.32-4.0)
[2024-11-29 12:44] LABS: Folate 7.9 ng/mL (> or = 4.0); Vitamin B12 470 pg/mL (200-900)
== END 2024-11-29 10:04 | disposition home or self-care (01) ==
LOC: HO.LAB 10:03
PROVIDERS: PCP Internal Medicine; Visit Provider Internal Medicine
DX: Z00.00 Encounter for general adult medical examination without abnormal findings (principal); E66.812 Obesity, class 2; D64.9 Anemia, unspecified; E53.8 Deficiency of other specified B group vitamins; E55.9 Vitamin D deficiency, unspecified; J45.909 Unspecified asthma, uncomplicated; Z68.36 Body mass index [BMI] 36.0-36.9, adult
CPT/HCPCS: 36415; 80053; 80061; 82306; 82607; 82746; 83540; 84443; 85025; 99395

== ENCOUNTER 2024-11-29 10:03 | Outpatient (AMB) | payer OTHER, SELFPAY ==
--- OUTSIDE RECORDS SUMMARY | 2024-11-29 10:10 | XMS_ITS | Clinical Summary ---
Author Organization [employer] Address [address] [address] [place] [address] Care Team Providers Care Associate Professor Of Theology Name Role Phone Unavailable Primary Care Provider [...] patient's age to complete this topic Insurance [facility] [place] [id number]
--- NOTE | 2024-11-29 10:14 | MHC.PC.OV ---
Vital Signs 11/29/24 10:15 Height 5 ft 4 in Weight 212 lb 4 oz BMI 36.4 BP 130/60 Blood Pressure Location Lt brachial Position Sitting Temp 97.1 F Temp Source Temporal Artery Scan Intake Visit Reasons: physical exam Intake Note: Patient is here today for a physical. Bed Machine Operator Required: No Global Logistics Analyst: Not Required per policy Accompanied by: Self / Same As Patient Allergies No Known Allergies Allergy (Verified 11/29/24 10:36) Medication List - Last Reconciled 11/29/24 by Maria Isabel Mazariegos MD Ventolin HFA 90 mcg/actuation (albuterol sulfate) 2 puffs inhalation Q6H PRN 30 days NS Tobacco use date assessed: 11/29/24 Dental Screening Dental Screen Date: 11/16/24 HPI HPI Comments History of Present Illness Details The patient is a 23-year-old female presenting with a physical examination and concerns about weight management and irregular menstruation. The patient reports a history of class 2 obesity, with a current weight of 212 pounds, which has increased since her last visit when she was and weighed 183 pounds. She has attempted various dietary interventions, including a diet similar to her grandmother's diabetes management plan and intermittent fasting, but has not achieved desired results. The patient also reports irregular menstruation since giving , with concerns about potential polycystic ovary syndrome (PCOS) or thyroid dysfunction contributing to her symptoms. She has not experienced regular periods and is concerned about the impact of these symptoms on her overall health. The patient has no known allergies and uses a rescue inhaler as needed. She denies any history of surgeries and reports that her parents are alive and healthy without any significant medical conditions. She does not smoke or consume alcohol. [facility] Medical History (Updated 11/29/24 @ 10:49 by Maria Isabel Mazariegos MD) Vaginal delivery Pre-eclampsia Surgical History No pertinent past surgical history Family History Mother No problems noted. Father No problems noted. Social History Housing: Apartment Alcohol intake: never Patient Tobacco Use Status: Never used Tobacco e-Cigarette/Vaping Use: Never Used Second Hand Smoke Exposure: No service: No Current occupational status: unemployed Cognitive needs: No Hearing needs: No Vision needs: Yes (Glasses) Questionnaire Thrive Questionnaire Date Thrive assessed: 11/16/24 I am a: Patient What is your living situation today?: I have a steady place to live Within the past 12 months, did the food you bought not last and you didn't have the money to get more?: Never true Within the past 12 months, did you worry whether your food would run out before you got money to buy more?: Never true Do you have trouble paying for medicines?: No Do you have trouble getting transportation to medical appointments?: No Do you have trouble paying your heating and electricity bill?: No Do you have trouble taking care of your child, family member or friend?: No Do you have trouble with day-to-day activities such as bathing, preparing meals, shopping, managing finances, etc.?: No Are you currently unemployed and looking for a job?: No Are you interested in more education?: No Please select the resources that you would like help with: None Currently or been in a relationship where the following occur: No concerns reported THRIVE Score: 0 CRICKET-7 AMB Questionnaire CRICKET-7 Date CRICKET - 7 assessed: 11/16/24 Source: Developed by Drs. Tc Jett, Madie Ring, Chidi Blankenship and colleagues, with an educational naif from [employer]. Review of Systems Const All systems reviewed & are unremarkable except as noted in HPI and below Card Denies chest pain at rest, Denies chest pain with activity, Denies edema, Denies irregular heart rhythm, Denies claudication, Denies dyspnea, Denies dyspnea on exertion, Denies orthopnea, Denies paroxysmal nocturnal dyspnea and Denies slow heart rate Resp Denies cough, Denies dyspnea and Denies dyspnea on exertion Physical exam (Primary Care) Vital Signs: Last Vital Signs Temp 97.1 F 11/29/24 10:15 BP 130/60 11/29/24 10:15 BMI result Body Mass Index 36.4 BMI Assessment/Plan discussion: High BMI High, discussed plan: lifestyle, weight reduction, dietary and physical activity Tobacco/Smoking Status: Tobacco use Status Tobacco use date assessed 11/29/24 11/29/24 10:19 Patient Tobacco Use Status Never used Tobacco 11/29/24 10:19 e-Cigarette/Vaping Use Never Used 11/29/24 10:19 Thrive Assessment: Date of Thrive Assessment Date Thrive assessed 11/16/24 11/29/24 10:19 Currently or been in a relationship where the following occur: No concerns reported [facility] Head: Yes normal to inspection, Yes normocephalic and Yes atraumatic Ears: external ears normal Eyes General: appearance normal, both eyes and all related structures Eyelids: Yes eyelids normal Conjunctivae: conjunctivae normal Neck Neck: Yes normal visual inspection and Yes supple Resp Effort & Inspection: normal respiratory effort Auscultation: clear to auscultation bilaterally Cardio Jugular venous distension: no JVD Rate: regular rate Rhythm: regular rhythm Heart sounds: S1 normal heart sound present and S2 normal heart sound present GI Inspection: Yes normal to inspection Palpation (GI): Soft to palpation and nontender Auscultation: normal bowel sounds Skin General skin exam: no rashes or lesions noted Neuro General: no focal motor deficits Extrem General: Yes full ROM Psych Appearance: grossly normal Coding Level of Care Code Est Pt Level 3 (92757) Est Pt Prev Care 18-39y(50144) Diagnoses Physical exam Z00.00 Class 2 obesity with body mass index (BMI) of 36.0 to 36.9 in adult E66.812; Z68.36 Time Spent (min) 32 Assessment & Plan Assessment & Plan (1) Physical exam: Code(s): Z00.00 - Encounter for general adult medical examination without abnormal findings Category: Medical (2) Class 2 obesity with body mass index (BMI) of 36.0 to 36.9 in adult: Code(s): E66.812 - Obesity, class 2; Z68.36 - Body mass index [BMI] 36.0-36.9, adult Category: Medical Plan Plan 1.Encounter for general adult medical examination without abnormal findings Z00.00 Repeat in a year.. 2. Obesity, class 2 E66.812 The patient is advised to follow up with a weight management program to receive guidance on diet and exercise, and to explore potential pharmacological interventions. Intermittent fasting and other dietary modifications have been attempted without success, and further evaluation of thyroid function is planned to rule out any contributing factors. Orders: Orders Complete Blood Count Auto Diff Today D64.9 - Anemia, unspecified Vitamin B12 and Folate Today E53.8 - Deficiency of other specified B group vitamins Vitamin D 25-OH Total Today E55.9 - Vitamin D deficiency, unspecified Thyroid Stimulating Hormone Today E66.812 - Obesity, class 2, Z68.36 - Body mass index [BMI] 36.0-36.9, adult Lipid Panel Today Z00.00 - Encounter for general adult medical examination without abnormal findings Comprehensive [place]. Panel Fast Today Z00.00 - Encounter for general adult medical examination without abnormal findings IRON PROFILE Today D64.9 - Anemia, unspecified Referrals Medical Weight Management Referral E66.812 - Obesity, class 2, Z68.36 - Body mass index [BMI] 36.0-36.9, adult Medications: Refilled Ventolin HFA 90 mcg/actuation (albuterol sulfate) 2 puffs inhalation Q6H PRN 8 grams 2RF shortness of breath or wheezing 30 days NS J45.909 - Unspecified asthma, uncomplicated
[2024-11-29 10:15] VITALS: BP 130/60; TEMP 36.2; BMI 36.4
== END 2024-11-29 10:48 | disposition home or self-care (01) ==
LOC: HO.HMCH 10:04
PROVIDERS: PCP Internal Medicine; Visit Provider Internal Medicine
DX: Z00.00 Encounter for general adult medical examination without abnormal findings (principal); E66.812 Obesity, class 2; Z68.36 Body mass index [BMI] 36.0-36.9, adult